=== PATIENT | female | born 2000 | race Two or more races ===

== ENCOUNTER → 2025-02-03 | Outpatient (CLI) | payer BC, SELFPAY ==
--- NOTE | 2025-02-03 | XR_ITS ---
Examination: PA lateral chest 2 views TECHNIQUE: Upright PA lateral chest 2 views Date and time: February 03, 2025 0826 hours INDICATIONS: Right-sided lower rib pain beginning 3 weeks ago after coughing. FINDINGS: Normal heart size. Lungs are clear. Clavicles ribs appear intact IMPRESSION: No pneumothorax pulmonary contusion or hemothorax
--- NOTE | 2025-02-03 | XR_ITS ---
Examination: Ribs, right, with PA chest, 4 views Technique: Chest PA, RIBS AP, RPO, LPO or views Exam date and time: February 03, 2025, 0821 hours INDICATIONS: Right lower rib pain after coughing beginning one month ago Findings: Normal heart size. No pneumothorax. Adequate bone density No acute rib fractures IMPRESSION: No pneumothorax pulmonary contusion or hemothorax No acute rib fractures
== END | disposition home or self-care (01) ==
LOC: CDIM 07:55
PROVIDERS: PCP Internal Medicine; Referring Provider Internal Medicine; Visit Provider Internal Medicine
DX: R05.2 Subacute cough (principal); S23.41XA Sprain of ribs, initial encounter; X58.XXXA Exposure to other specified factors, initial encounter
CPT/HCPCS: 71046; 71101